=== PATIENT | female | born 1965 | race Caucasian/White ===

== ENCOUNTER 2024-08-27 08:12 | Emergency (ER) | payer MEDICAID, SELFPAY ==
[2024-08-27] VITALS (8 sets, daily range): BP systolic 97–113; BP diastolic 50–76; PULSE 78–99; RESP 16–23; TEMP 36.8–36.9; O2SAT 90–98; BMI 28.4
--- NOTE | 2024-08-27 08:21 | ED.VIS.DYS ---
HPI History of Present Illness Chief Complaint: Shortness of Breath Informant: patient Onset/Context/Timing Onset: Yesterday Context: gradual Timing: Continuous Quality: Positive for Dyspnea on exertion Worsened by: Exertion Relieved by: Oxygen Associated Symptoms cough and yellow sputum; Negative for rhinorrhea, post nasal drip, ear pain, fever, sore throat, chills, clear sputum, white sputum or green sputum Chest Pain: Positive for Pressure (Left chest) Narrative Narrative: Patient presents with shortness of breath that has been getting progressively worse since yesterday. Patient states it is gradually getting worse. Patient states it is constant. Patient states her breathing is worse with any exertion. Patient states that the oxygen seems to help with her breathing. Patient admits to a cough with some yellow sputum. Patient admits to some pressure over the left side of her chest. Patient denies any sore throat or rhinorrhea. Patient denies any fevers or chills. PE Risk Factors: Negative for Cancer, OCP + Smoking + > 35, Prior DVT or PE, Recent immobilization, Recent surgery or Recent travel [facility] Medical History Coronary artery disease COPD (chronic obstructive pulmonary disease) Home Medications ?Medication ?Instructions ?Recorded ?Last Taken ?Type NK 08/27/24 Unknown History azithromycin 250 mg tablet 250 mg PO DAILY #4 TABLETS 08/27/24 Unknown Rx prednisone 20 mg tablet 60 mg (3 x 20 mg) PO DAILY #15 08/27/24 Unknown Rx TABLETS Allergy/AdvReac Type Severity Reaction Status Date / Time naproxen (From Aleve) Allergy Severe Anaphylaxis Verified 08/27/24 08:14 Surgical History History of carpal tunnel surgery History of coronary artery stent placement Social History Smoking Status: Current every day smoker tobacco type: cigarettes ROS ROS ED Constitutional Constitutional ED: Denies chills or fever(s) Eyes Eyes: Denies blurry vision or change in vision ENT ENT ED: Denies rhinorrhea or sore throat Cardiovascular Cardiovascular: Reports chest pain, palpitations and racing heartbeat Respiratory/Chest Respiratory/Chest: Reports cough and dyspnea Gastrointestinal Gastrointestinal: Denies nausea or vomiting Genitourinary Genitourinary ED: Denies dysuria or hematuria Musculoskeletal Musculoskeletal: Denies back pain or neck pain Integumentary Denies abscess or rash Neurologic Neurologic: Denies headache(s) or weakness Allergic/Immunologic Allergic/Immunologic ED: Denies mouth swelling or urticaria EXAM Physical Exam Const Vital Signs: 08/27/24 08:14 08/27/24 08:18 08/27/24 08:36 Temperature 98.4 F Temperature Source Oral Pulse Rate 94 Respiratory Rate 23 H Respiratory Effort Short of Breath Respiratory Depth Normal Respiratory Pattern Normal Blood Pressure 108/50 L Blood Pressure Mean 69 Pulse Ox 93 Oxygen Delivery Method Nasal Cannula Nasal Cannula Nasal Cannula Oxygen Flow Rate (L/min) 2 2 2 08/27/24 08:45 08/27/24 08:49 08/27/24 09:18 Temperature 98.4 F Temperature Source Oral Pulse Rate 99 87 80 Respiratory Rate 16 20 H Respiratory Effort Respiratory Depth Respiratory Pattern Normal Blood Pressure 113/72 97/69 Blood Pressure Mean 78 Pulse Ox 94 Oxygen Delivery Method Nasal Cannula Oxygen Flow Rate (L/min) 2 08/27/24 10:00 08/27/24 12:00 08/27/24 12:00 Temperature 98.3 F Temperature Source Oral Pulse Rate 94 78 87 Respiratory Rate 20 H 19 H 18 Respiratory Effort Respiratory Depth Respiratory Pattern Normal Blood Pressure 104/70 107/76 Blood Pressure Mean 81 86 Pulse Ox 93 98 Oxygen Delivery Method Nasal Cannula Room Air Oxygen Flow Rate (L/min) 2 08/27/24 13:00 Temperature Temperature Source Pulse Rate 88 Respiratory Rate 18 Respiratory Effort Respiratory Depth Respiratory Pattern Blood Pressure 108/55 L Blood Pressure Mean 70 Pulse Ox Oxygen Delivery Method Oxygen Flow Rate (L/min) Positive well nourished and well developed Constitutional Narrative: BMI is 28.5 General Appearance ED: well developed and NAD HEENT Reports moist mucous membranes atraumatic Neck supple, no meningeal signs and no JVD Resp normal respiratory effort Auscultation: wheezes expiratory wheezes and throughout Cardio regular rate and regular rhythm GI non-tender and non-distended Palpation: soft Extremity normal to inspection General Extremety ED: Negative for edema or tenderness General Extremity: Negative for edema Neuro oriented x3, CN's II-XII intact bilaterally and no sensory deficits noted [place] Coma Scale: document GCS findings Spontaneous Obeys Commands Oriented 15 Sensorium / Orientation: alert Speech: speech normal Motor Exam: strength 5/5 throughout Psych mental status grossly normal MDM MDM MDM Narrative Medical decision making narrative: Differential diagnosis includes pneumonia, bronchitis, cardiac dysrhythmia, cardiac ischemia, electrolyte abnormality, and viral illness. Chest x-ray will be obtained to assess for pneumonia and bronchitis. EKG will be obtained to assess for cardiac dysrhythmia cardiac ischemia. CBC will be obtained to assess for leukocytosis and anemia. Basic metabolic profile will be obtained to assess for electrolyte abnormality and renal function. COVID-19, influenza, and RSV PCR will be obtained to assess for viral illness. High-sensitivity troponin will be obtained to assess for cardiac ischemia. 2-hour repeat high-sensitivity troponin will be obtained to assess for ongoing cardiac ischemia. History & Record Review Additional record(s) reviewed:: No prior records Lab Data Attestation: I reviewed the patient's lab results. Lab results narrative: CBC was reviewed. Hemoglobin was slightly elevated at 16.0. The remainder was essentially within normal limits. Basic metabolic profile was reviewed and was within normal limits. Initial high-sensitivity troponin was reviewed and was less than 6. 2-hour repeat high-sensitivity troponin was reviewed and was less than 6. Labs: Laboratory Results - last 24 hr 08/27/24 08/27/24 08:40 10:43 WBC 10.0 RBC 5.22 Hgb 16.0 H Hct 47.2 H MCV 90.4 MCH 30.7 MCHC 33.9 RDW Std Deviation 44.3 H RDW Coeff of Eunice 13.2 Plt Count 214 MPV 9.3 Immature Gran % (Auto) 0.300 Neut % (Auto) 79.9 H Lymph % (Auto) 13.6 L [place] % (Auto) 5.7 Eos % (Auto) 0.2 Baso % (Auto) 0.3 Absolute Neuts (auto) 8.0 H Absolute Lymphs (auto) 1.35 Nucleated RBC % 0 Sodium 139 Potassium 4.1 Chloride 104 Carbon Dioxide 26.0 Anion Gap 9 BUN 11 Creatinine 0.66 L Estim Creat Clear Calc 80.13 Est GFR (MDRD) Non-Af 100 BUN/Creatinine Ratio 17.1 Glucose 93 Calcium 9.3 Troponin T High Sens < 6 Troponin T Hi Sens 2 Hr < 6 Radiography Chest X-Ray - ED: 1 View, Read by ED Physician, Read by Radiologist and - (Bibasilar atelectasis) Diagnostic Testing: Clinical Impression(s) from Imaging Studies Chest X-Ray 08/27/24 09:15 IMPRESSION: Mild bilateral basilar atelectatic pulmonary changes. Reading Location: [place] [address] Portable 1 view chest x-ray was obtained. On my independent interpretation, lung holt showed bibasilar atelectasis. There is normal cardiac silhouette. Bony thorax is normal. There is no acute process noted. Radiologist also interpreted the x-ray and agrees. EKG Initial EKG: Attestation: I personally reviewed and interpreted this EKG as follows: Interpretation: Sinus Rhythm (90) and No Acute Injury Pattern Comments: EKG was obtained. On my independent interpretation, it showed a normal sinus rhythm with a rate of 90. NC interval, QRS interval, and QTc intervals were all normal. [place] was normal. There are no acute ST or T wave changes. Prior EKG tracings: not available for review Prior: No Prior Treatment and Re-Evaluation :: Smoking cessation was discussed. Patient was given a DuoNeb aerosol here. Patient was given aspirin. Patient was given IV fluids. Patient was feeling better on reevaluation. Patient was given a repeat albuterol aerosol. Patient was ambulated on room air after this. Patient's pulse oximeter dropped to 84% while ambulating. Patient was given a dose of Solu-Medrol. Case was discussed with the hospitalist. He will admit the patient to his service. Patient understood and was agreeable with the plan. All questions were answered. Hospitalist was in to evaluate the patient. Patient does not want to be admitted. Patient states she would just go home and sit and rest. Patient is refusing to be admitted. Patient will need to sign out AGAINST MEDICAL ADVICE. Patient was given a prescription for prednisone and Zithromax. Patient was given her first dose here. Patient was instructed to return if worse in any way. Patient and family understood and were agreeable with the plan. All questions were answered. Discharge Plan Triage Chief Complaint: Shortness of Breath ED Provider: Ramesh Rinaldi Dx/Rx/DC Orders Clinical Impression: Acute exacerbation of COPD with asthma, Hypoxia Primary Care Provider: Care Physician,No Primary Disposition Disposition: Against Medical Advice
[2024-08-27] MEDS: Aspirin 81 MG TAB.CHEW 324 MG PO (08:44)
[2024-08-27] MEDS: Nitroglycerin SL (ED/IMG/CATH) 0.4 MG TABLET SL (08:45)
[2024-08-27] MEDS: 0.9% Normal Saline (500mL Bag) 500 ML 1000 ML IV (08:49)
[2024-08-27] MEDS: Ipratropium/Albuterol Sulfate 3 ML AMPUL.NEB INHALATION (08:49)
[2024-08-27 08:56] LABS: Absolute Lymphocyte Count 1.35 X10^3/uL (0.83-4.51); Basophil# 0.03 X10^3/uL; Basophil% 0.3 % (0-1); Eosinophil# 0.02 X10^3/uL; Eosinophils% 0.2 % (0-5); Hematocrit 47.2 % (37-47); Lymphocyte # 1.35 X10^3/ul (0.83-4.51); Lymphocyte % 13.6 % (19-41); Mean Corp Hgb Conc 33.9 g/dL (32-36); Mean Corpuscular Hgb 30.7 pg (27.0-32.0); Mean Corpuscular Volume 90.4 fL (81-99); Mean Platelet Vol. 9.3 fl (6.2-12.0); Monocyte# 0.57 X10^3/uL; Monocyte% 5.7 % (0-10); NRBC Flagged by Analyzer 0 % (0-5); Neutrophil # 7.96 X10^3/uL (2.7-7.7); Neutrophil % 79.9 % (47-70); Platelet Count 214 K/mm3 (150-450); RBC Distribution Width CV 13.2 % (11.6-14.6); RBC Distribution Width SD 44.3 fl (35.1-43.9); Red Blood Count 5.22 M/mm3 (4.2-5.4)
--- NOTE | 2024-08-27 09:15 | RAD_ITS ---
PROCEDURE: CHEST 1 VIEW (PORTABLE) 08/27/2024 REASON FOR EXAM: CHEST PAIN TECHNIQUE: Frontal view of the chest. COMPARISON: None. FINDINGS: Mild bilateral basilar atelectatic pulmonary changes. There is no demonstrated pleural abnormality. Normal heart and pericardium. Normal mediastinum and yasmani. Normal visualized pulmonary arteries. Normal visualized aortic arch and descending thoracic aorta. Mild S shaped scoliosis with diffuse spondylosis of the visualized thoracic spine. Normal visualized ribs, clavicles, and shoulders. There is no demonstrated abnormality of the visualized soft tissue structures of the upper abdomen. RAD/Chest 1 View (Portable) IMPRESSION: Mild bilateral basilar atelectatic pulmonary changes. Reading Location: [place]
[2024-08-27 09:46] LABS: Anion Gap 9 (5-15); BUN 11 mg/dL (4-19); BUN/Creat Ratio 17.1 RATIO (10-20); Calcium,Total 9.3 mg/dL (7.6-11.0); Chloride 104 mmol/L (98-108); Creatinine, Serum 0.66 mg/dL (0.70-1.20); EST Glomerular Filtration Rate 100 (>60); Estimated Creatinine Clearance 80.13 ml/min (50-250); Glucose 93 mg/dL (70-99); Potassium 4.1 mmol/L (3.3-5.1); Sodium Level 139 mmol/L (133-145); Troponin T High Sensitivity < 6 ng/L (<=14)
[2024-08-27 11:26] LABS: Troponin T High Sens 2 HR < 6 ng/L (<=14)
[2024-08-27] MEDS: Albuterol 2.5 MG/3 ML VIAL.NEB. INHALATION (11:59)
--- NOTE | 2024-08-27 12:44 | PCM.HP.STD ---
HPI - General HPI Narrative RAJI JOE, is a 59 F who presents [facility] Medical History Coronary artery disease COPD (chronic obstructive pulmonary disease) Home Medications ?Medication ?Instructions ?Recorded ?Last Taken ?Type NK 08/27/24 Unknown History Allergy/AdvReac Type Severity Reaction Status Date / Time naproxen (From Aleve) Allergy Severe Anaphylaxis Verified 08/27/24 08:14 Surgical History History of carpal tunnel surgery History of coronary artery stent placement Social History Smoking Status: Current every day smoker tobacco type: cigarettes Vital Signs Vital Signs Vital Signs: 08/27/24 08:14 08/27/24 08:18 08/27/24 08:36 Temperature 98.4 F Temperature Source Oral Pulse Rate 94 Respiratory Rate 23 H Respiratory Effort Short of Breath Respiratory Depth Normal Respiratory Pattern Normal Blood Pressure 108/50 L Blood Pressure Mean 69 Pulse Ox 93 Oxygen Delivery Method Nasal Cannula Nasal Cannula Nasal Cannula Oxygen Flow Rate (L/min) 2 2 2 08/27/24 08:45 08/27/24 08:49 08/27/24 09:18 Temperature 98.4 F Temperature Source Oral Pulse Rate 99 87 80 Respiratory Rate 16 20 H Respiratory Effort Respiratory Depth Respiratory Pattern Normal Blood Pressure 113/72 97/69 Blood Pressure Mean 78 Pulse Ox 94 Oxygen Delivery Method Nasal Cannula Oxygen Flow Rate (L/min) 2 08/27/24 10:00 08/27/24 12:00 08/27/24 12:00 Temperature 98.3 F Temperature Source Oral Pulse Rate 94 78 87 Respiratory Rate 20 H 19 H 18 Respiratory Effort Respiratory Depth Respiratory Pattern Normal Blood Pressure 104/70 107/76 Blood Pressure Mean 81 86 Pulse Ox 93 98 Oxygen Delivery Method Nasal Cannula Room Air Oxygen Flow Rate (L/min) 2 Weight Weight: 150 lb 9.211 oz Body Mass Index (BMI) 28.4 Results Lab / Micro Data 08/27/24 08:40 08/27/24 08:40 Labs: Laboratory Results - last 24 hr 08/27/24 08:40: WBC 10.0, RBC 5.22, Hgb 16.0 H, Hct 47.2 H, MCV 90.4, MCH 30.7, MCHC 33.9, RDW Std Deviation 44.3 H, RDW Coeff of Euince 13.2, Plt Count 214, MPV 9.3, Immature Gran % (Auto) 0.300, Neut % (Auto) 79.9 H, Lymph % (Auto) 13.6 L, [place] % (Auto) 5.7, Eos % (Auto) 0.2, Baso % (Auto) 0.3, Absolute Neuts (auto) 8.0 H, Absolute Lymphs (auto) 1.35, Nucleated RBC % 0, Sodium 139, Potassium 4.1, Chloride 104, Carbon Dioxide 26.0, Anion Gap 9, BUN 11, Creatinine 0.66 L, Estim Creat Clear Calc 80.13, Est GFR (MDRD) Non-Af 100, BUN/Creatinine Ratio 17.1, Glucose 93, Calcium 9.3, Troponin T High Sens < 6 08/27/24 10:43: Troponin T Hi Sens 2 Hr < 6 Imaging Radiology Impression Chest X-Ray 08/27/24 09:15 IMPRESSION: Mild bilateral basilar atelectatic pulmonary changes. Reading Location: [place] [id number] Assessment & Plan Assessment/Plan PLAN: Plan Laboratory Results SMOKES / PPD 08/27/24 08:40: WBC 10.0, RBC 5.22, Hgb 16.0 H, Hct 47.2 H, MCV 90.4, MCH 30.7, MCHC 33.9, RDW Std Deviation 44.3 H, RDW Coeff of Eunice 13.2, Plt Count 214, MPV 9.3, Immature Gran % (Auto) 0.300, Neut % (Auto) 79.9 H, Lymph % (Auto) 13.6 L, [place] % (Auto) 5.7, Eos % (Auto) 0.2, Baso % (Auto) 0.3, Absolute Neuts (auto) 8.0 H, Absolute Lymphs (auto) 1.35, Nucleated RBC % 0, Sodium 139, Potassium 4.1, Chloride 104, Carbon Dioxide 26.0, Anion Gap 9, BUN 11, Creatinine 0.66 L, Estim Creat Clear Calc 80.13, Est GFR (MDRD) Non-Af 100, BUN/Creatinine Ratio 17.1, Glucose 93, Calcium 9.3, Troponin T High Sens < 6 08/27/24 10:43: Troponin T Hi Sens 2 Hr < 6 Clinical Impression(s) from Imaging Studies Chest X-Ray 08/27/24 09:15
[2024-08-27] MEDS: MethylPREDNISolone 125 MG/2 ML Vial 60 MG IV (12:51)
--- NOTE | 2024-08-27 13:28 | PCM.HOSP.N ---
Hospitalist Note ER physician Dr. Rosales called me to admit this patient. In summary, 59-year-old female with 40 pack years of smoking still smokes about a pack per day, undiagnosed COPD and used to follow certified alcohol drug counselor before moving to this town. She came to ED with increasing shortness of breath over past 24 hours, productive yellowish sputum cough left-sided disease pleuritic chest pain. Chest x-ray reviewed and shows bibasilar atelectasis but no consolidation. Patient requires oxygen on ambulation but not at rest. I think admission is appropriate for COPD exacerbation but patient refused it. She stated that provide she cannot to stay at home with prednisone. She said she has bronchodilator/nebulization at home. I said that she needs oxygen on admission that she replied that she has small house and she is not going to walk. She further stated that she will follow the care analyst and get the oxygen as an outpatient. Discussed with the ER physician and he said he will let the patient sign AMA. Advised prescription for prednisone and oral Zithromax. For COPD exacerbation
--- NOTE | 2024-08-27 14:00 | CM.ED ---
Social work Reason for referral: no PCP Referral source: case find This SW identified patient's lack of PCP and need for resources. This SW entered patient's room, introducing self and role at [facility]. Patient's son, Jose, bedside; permission given to speak in front of Jose. Patient stated frustration with being admitted due to belief that patient would be fine at home with the same treatments patient would receive here at [facility]. Patient's O2 levels decreased to 84% with ambulation and patient remained adamant that patient would be fine at home. Patient agreed to answer the initial intake assessment questions with Jose at bedside. Patient stated not having a PCP and accepted resources of [facility] Provider Directory and [email or web address] information. No further needs identified. After leaving patient's room, hospitalist entered and patient refused to be admitted; patient discharged AMA. Kandi Marti, PROMOTIONS REPRESENTATIVE, TOPPIECE CUTTER
[2024-08-27 14:17] LABS: Troponin T High Sens 4 HR < 6 ng/L (<=14)
== END 2024-08-27 13:43 | disposition left against medical advice (07) ==
LOC: ED 12:41 → MS3 13:29
PROVIDERS: Emergency Provider Emergency Medicine; Visit Provider Emergency Medicine
DX: J44.1 Chronic obstructive pulmonary disease with (acute) exacerbation (principal); I25.10 Atherosclerotic heart disease of native coronary artery without angina pectoris; F17.210 Nicotine dependence, cigarettes, uncomplicated; Z53.29 Procedure and treatment not carried out because of patient's decision for other reasons; R09.02 Hypoxemia
CPT/HCPCS: 71045; 80048; 84484; 85025; 87631; 93005; 94640; 96361; 96374; 99285; A4216